=== PATIENT | male | born 1955 | race Caucasian/White ===

== ENCOUNTER 2017-11-22 11:27 | Emergency (ER) | END 2017-11-22 14:41 | disposition left against medical advice (07) ==

== ENCOUNTER 2018-03-03 02:55 | Emergency (ER) | END 2018-03-03 06:08 | disposition left against medical advice (07) ==

== ENCOUNTER 2018-11-27 18:29 | Inpatient (IN) | payer OTHER ==
[~2018-11-27] VITALS: Ht 188 cm; Wt 102.7 kg
[~2018-11-27 18:29] MED LIST: ACET500C5 PO; ALBU8.5H8 INH; FLUT1BLS INHALATION; PRED20TA PO
[2018-11-27] MEDS ORDERED: LEVALBUTEROL (NEB) 1.25 MG/0.5 ML AMP INH STA ×2 (18:41→22:12)
[2018-11-27] MEDS ORDERED: CEFEPIME 2GM/50 ML (PMX) 50 ML IVPB STA (18:41)
[2018-11-27] MEDS ORDERED: ACETAMINOPHEN 325 MG TAB PO STA (18:41)
[2018-11-27] MEDS ORDERED: SODIUM CHLORIDE 0.9% 1L BAG IV* STA (18:41)
[2018-11-27] MEDS ORDERED: DILTIAZEM-D5W 125MG/125ML DRIP 125 ML IV SCH (19:00)
[2018-11-27] MEDS ORDERED: DILTIAZEM 25 MG INJ IV ONE (19:00)
[2018-11-27] MEDS ORDERED: VANCOMYCIN 1 GM (PMX) 250 ML IVPB ONE (19:00)
--- NOTE | 2018-11-27 19:02 | ERD ---
ER Documentation Chief Complaint Chief Complaint Pt. ROSALIA GRAY with c/o SOB, "ran out of inhaler". Tachycardia HPI This is a 63-year-old male who is here because of difficulty breathing. The patient was brought in by EMS because he called him because he had a hard time breathing due to weak wheezing and he states he had no chest pain but he has had a cough for the past 2 days with productive yellow sputum. He says his is also sick at home with the same symptoms. He was given a breathing treatment in route and he says he feels much better. The patient says he has no history of cardiac arrhythmia. He does not know if he has had any fevers but he has had some chills at home. ROS All systems reviewed and are negative except as per history of present illness. Medications Home Meds Active Scripts Prednisone* (Prednisone*) 20 Mg Tab, 40 MG PO DAILY for 4 Days, TAB Prov:ROLANDO HAY DO 09/08/16 Acetaminophen* (Tylophen*) 500 Mg Capsule, 1 CAP PO Q6H PRN for PAIN AND OR ELEVATED TEMP, #20 CAP Prov:ROLANDO HAY DO 09/08/16 Albuterol Sulfate* (Proair HFA*) 8.5 Gm Hfa.aer.ad, 2 PUFF INH Q4, #1 INHALER Prov:ASHLEY CABRERA MD 10/26/15 Reported Medications Fluticasone/Vilanterol (Breo Ellipta 200-25 Mcg INH) 1 Each Blst.w.dev, 1 PUFF INHALATION DAILY, #1 INHALER 09/08/16 Allergies Allergies: Coded Allergies: Sulfa (Sulfonamide Antibiotics) (Verified Allergy, Intermediate, rashes, 09/08/16) aspirin (Verified Allergy, Intermediate, ANAPHYLATIC SHOCK, 09/08/16) ibuprofen (Verified Allergy, Intermediate, ANAPHYLACTIC SHOCK, 09/08/16) PMhx/Soc History of Surgery: Yes (Nasal Surgery X3) Anesthesia Reaction: No Hx Neurological Disorder: No Hx Respiratory Disorders: Yes (Asthma) Hx Cardiac Disorders: No Hx Psychiatric Problems: No Hx Miscellaneous Medical Probl: No Hx Alcohol Use: Yes (Occasional) Hx Substance Use: Yes (marijuana) Hx Tobacco Use: No Smoking Status: Never smoker FmHx Family History: No coronary disease Physical Exam Vitals Vital Signs Date Temp Pulse Resp B/P (MAP) Pulse Ox O2 O2 Flow FiO2 Time Delivery Rate 11/27/18 97 12 123/92 95 Nasal 4.0 20:13 (102) Cannula 11/27/18 103 22 93 21 19:20 11/27/18 100.0 19:08 11/27/18 100.0 134 26 160/95 99 18:36 (116) Physical Exam Const: Well-developed, well-nourished Head: Atraumatic, normocephalic Eyes: Normal Conjunctiva, PERRLA, EOMI, normal sclera, no nystagmus ENT: Normal External Ears, Nose and Mouth, moist mucus membranes. Neck: Full range of motion. No meningismus, no lymphadenopathy. Resp: Diffuse rhonchi bilaterally no increased work of breathing Cardio: Tachycardia irregular rate and rhythm S1 S2 present Abd: Soft, non tender x 4, non distended. Normal bowel sounds, no guarding or rebound, no pulsitile abdominal masses or bruits Skin: No petechiae or rashes, no ecchymosis , no maculopapular rash Back: No midline or flank tenderness Ext: No cyanosis, or edema, FROM x 4, normal inspection, neurovascularly intact x 4 Neur: Awake and alert, STR 5/5 x 4, sensation intact x 4, no focal findings, cerebellum intact Psych: Normal Mood and Affect Result Diagram: 11/27/18185011/27/181850 Results 24 hrs Laboratory Tests Test 11/27/18 18:51 White Blood Count 10.0 10^3/ul Red Blood Count 4.97 10^6/ul Hemoglobin 15.2 g/dl Hematocrit 45.4 % Mean Corpuscular Volume 91.3 fl Mean Corpuscular Hemoglobin 30.6 pg Mean Corpuscular Hemoglobin Concent 33.5 g/dl Red Cell Distribution Width 13.1 % Platelet Count 203 10^3/UL Mean Platelet Volume 10.3 fl Immature Granulocytes % 0.200 % Neutrophils % 63.9 % Lymphocytes % 24.9 % Monocytes % 9.0 % Eosinophils % 1.6 % Basophils % 0.4 % Nucleated Red Blood Cells % 0.0 /100WBC Immature Granulocytes # 0.020 10^3/ul Neutrophils # 6.4 10^3/ul Lymphocytes # 2.5 10^3/ul Monocytes # 0.9 10^3/ul Eosinophils # 0.2 10^3/ul Basophils # 0.0 10^3/ul Nucleated Red Blood Cells # 0.0 10^3/ul Prothrombin Time 12.8 Sec Prothrombin Time Ratio 1.0 INR International Normalized Ratio 0.95 Activated Partial Thromboplast Time 28.7 Sec Sodium Level 145 mmol/L Potassium Level 4.2 mmol/L Chloride Level 103 mmol/L Carbon Dioxide Level 33 mmol/L Anion Gap 9 Blood Urea Nitrogen 15 mg/dl Creatinine 1.38 mg/dl Est Glomerular Filtrat Rate mL/min 52 mL/min Glucose Level 128 mg/dl POC Venous Lactate 2.8 mmol/L Calcium Level 9.6 mg/dl Total Bilirubin 0.2 mg/dl Direct Bilirubin 0.00 mg/dl Indirect Bilirubin 0.2 mg/dl Aspartate Amino Transf (AST/SGOT) 36 IU/L Alanine Aminotransferase (ALT/SGPT) 29 IU/L Alkaline Phosphatase 81 IU/L Troponin I < 0.012 ng/ml Total Protein 8.4 g/dl Albumin 4.8 g/dl Globulin 3.60 g/dl Albumin/Globulin Ratio 1.33 Current Medications Medications Dose Sig/Tejal Start Time Status Last (Trade) Ordered Route PRN Stop Time Admin Dose Reason Admin Sodium 3,080 ml BOLUS OVER 2 11/27/18 DC 11/27/18 Chloride HOURS STAT 18:41 19:09 (NS) IV* 11/27/18 18:44 650 mg ONCE STAT 11/27/18 DC 11/27/18 Acetaminophen PO 18:41 19:08 (Tylenol 11/27/18 18:44 Tab) Cefepime HCl 50 ml @ ONCE STAT 11/27/18 DC 11/27/18 100 mls/hr IVPB 18:41 19:08 11/27/18 19:10 Vancomycin 250 ml @ ONCE ONCE 11/27/18 DC 11/27/18 HCl 125 mls/hr IVPB 19:00 19:56 11/27/18 20:59 1.25 mg ONCE STAT 11/27/18 DC 11/27/18 Levalbuterol INH 18:41 19:20 (Xopenex 11/27/18 18:44 Neb) Diltiazem 125 ml @ [id number] IV 11/27/18 11/27/18 HCl 10 mls/hr 19:00 19:42 Diltiazem 20 mg ONCE ONCE 11/27/18 DC 11/27/18 HCl IV 19:00 19:07 (Cardizem Iv) 11/27/18 19:01 Procedures/MDM EKG: Rate/Rhythm: Atrial fibrillation with rapid ventricular response QRS, ST, QT: NORMAL [place], QRS, QT] Impression: A. fib with RVR Patient is in A. fib with RVR heart rate in the 140s. Will give intravenous Cardizem bolus of 20 mg followed by Cardizem drip at 10 mg an hour. Code sepsis was called DIAGNOSTIC IMAGING REPORT Patient: ASHLEIGH EDWARDS : 1955 Age: 63 Sex: M MR #: [id number] DOS: 11/27/18 1841 Ordering MD: PAM WHITNEY DO Location: E/R Room/Bed: PROCEDURE: XR Chest. CLINICAL INDICATION: Infection TECHNIQUE: Single AP view of the chest was obtained COMPARISON: 09/08/2016 FINDINGS: The heart and mediastinum are within normal limits. The pulmonary vasculature are unremarkable. The aorta demonstrates atherosclerotic calcifications. There is no lung consolidation, pleural effusion or pneumothorax. Degenerative changes are seen within the thoracic spine and shoulders. There is no acute osseous abnormality. IMPRESSION: No acute disease. RPTAT: AA .Jeanine Marrufo MD, MD Date Time Electronically viewed and signed by .Jeanine Marrufo MD, MD on 11/27/2018 19:13 .J/ CC: PAM WHITNEY DO [phone] Admit MDM: Patient's infectious symptoms have not stabilized and the patient is at risk of rapid decompensation. The patient will be admitted for careful hydration, antibiotic therapy, and infectious source control. Severe Sepsis criteria: Infectious source: Pulmonary End organ damage indicated by: Elevated lactate Lactate > 2.0 mmol/L Hypotension (SBP < 90 or >40 mmHG drop or MAP < 65) Acute Resp Failure (sat < 92% w/o oxygen) [employer]st > 2.0 INR > 1.5 Plt < 100 Bili > 2 Sepsis Management: Time of recognition of severe sepsis: At time of the lactate Within 3 hours of recognition: Blood cultures x 2 before broad-spectrum antibiotics: []Yes 30 ml/kg NS bolus []Completed Initial lactate 2.8 Repeat lactate pending Septic Shock Assessment: Any lactic acid > 4.0 []No Persistent hypotension (SBP < 90 or 40 mmHg drop, MAP < 65) despite 30 mL/kg IV fluid bolus []No Persistent Hypotension Treatment: Comfort care []No Hypotension caused by: pt. baseline, med-induced, erroneous value, condition other than infection []No Refusal by patient/decision maker for: blood draw, IVF, Antibiotics, Pressors []No Accepting Care Team Current data and ongoing care discussed. Time: [] Admitting Physician: Panel Slitter Creaser Slotter Operator(s): Outstanding Data: []None Critical Care Time: 30 minutes Treatments/Evaluations: Close monitoring and treatment of unstable vital signs, cardiorespiratory, and neurologic status, while maintaining tight balance of flu id, respiratory, and cardiac interventions. This includes the administration of emergency fluid management while maintaining close respiratory support as well as the provision of immediate and broad-spectrum antibiotic therapy, while performing a simultaneous assessment for possible sources in order to direct targeted therapy. This time includes discussing the case with the patient and the patient's family. This time also includes the consideration for invasive and chemical support to prevent cardiopulmonary collapse. This time does not include all procedures stated elsewhere in this record. This time also includes reviewing old records, labs and radiological studies. This time includes exam ining and re-examining the patient. Additionally, this time also includes arranging care with admitting and consulting physicians. Departure Diagnosis: Primary Impression: Atrial fibrillation with RVR Additional Impression: Sepsis Sepsis type: sepsis due to unspecified organism Qualified Codes: A41.9 - Sepsis, unspecified organism Condition: PAM Shaver DO Nov 27, 2018 19:02
[2018-11-27] MEDS ORDERED: ACETAMINOPHEN 325 MG TAB PO PRN (22:00)
[2018-11-27] MEDS ORDERED: ONDANSETRON 4 MG INJ IV PRN (22:00)
[2018-11-27] MEDS ORDERED: ALBUTEROL/IPRATROPIUM (NEB) 3 ML AMP HHN STA (22:29)
[2018-11-27] MEDS ORDERED: METHYLPREDNISOLONE 125 MG INJ IV ONE (22:30)
[2018-11-27 22:52] VITALS: PULSE 87
[2018-11-27] MEDS ORDERED: PARO-37 PO (22:56)
[2018-11-27] MEDS ORDERED: LORA1TAB PO (22:56)
[2018-11-27] MEDS ORDERED: CETI10TA19 PO (22:56)
--- NOTE | 2018-11-27 22:58 | HP ---
Date/Time of Note Date/Time of Note DATE: 11/27/18 TIME: 22:41 Assessment/Plan VTE Prophylaxis Pharmacological prophylaxis: heparin Lines/Catheters IV Catheter Type (from Nrs): Peripheral IV Assessment/Plan Hospital Course This is a 63-year-old male with a history of obesity and persistent asthma who presents with URI induced asthma exacerbation Asthma exacerbation leading to hypoxic respiratory failure: -We will give bronchodilators [id number], systemic steroids and azithromycin - Lactic acid is elevated but i do no think this is sepsis. No evidence of shock so will hold off on further fluids URI: - Likely viral illness given sick contact with a cold - Influenza is negative Atrial fibrillation: - This is new diagnosis for him - Check TTE - Start on metoprolol 25 BID, rate currently adequate - CHADS2-VASc is 1, anticoagulation consideration at discharge Discharge plan pending Result Diagram: 11/27/18 1851 11/27/18 1851 Results 24hrs Laboratory Tests Test 11/27/18 18:51 11/27/18 21:46 11/27/18 22:13 White Blood Count 10.0 # Red Blood Count 4.97 Hemoglobin 15.2 Hematocrit 45.4 Mean Corpuscular Volume 91.3 Mean Corpuscular Hemoglobin 30.6 Mean Corpuscular Hemoglobin Concent 33.5 Red Cell Distribution Width 13.1 Platelet Count 203 Mean Platelet Volume 10.3 Immature Granulocytes % 0.200 Neutrophils % 63.9 Lymphocytes % 24.9 Monocytes % 9.0 Eosinophils % 1.6 Basophils % 0.4 Nucleated Red Blood Cells % 0.0 Immature Granulocytes # 0.020 Neutrophils # 6.4 Lymphocytes # 2.5 Monocytes # 0.9 Eosinophils # 0.2 Basophils # 0.0 Nucleated Red Blood Cells # 0.0 Prothrombin Time 12.8 Prothrombin Time Ratio 1.0 INR International Normalized Ratio 0.95 Activated Partial Thromboplast Time 28.7 Sodium Level 145 H Potassium Level 4.2 Chloride Level 103 Carbon Dioxide Level 33 H Anion Gap 9 Blood Urea Nitrogen 15 Creatinine 1.38 H Est Glomerular Filtrat Rate mL/min 52 L Glucose Level 128 POC Venous Lactate 2.8 *H 2.8 *H Calcium Level 9.6 Total Bilirubin 0.2 Direct Bilirubin 0.00 Indirect Bilirubin 0.2 Aspartate Amino Transf (AST/SGOT) 36 Alanine Aminotransferase (ALT/SGPT) 29 Alkaline Phosphatase 81 Troponin I < 0.012 Total Protein 8.4 H Albumin 4.8 Globulin 3.60 H Albumin/Globulin Ratio 1.33 Urine Color YELLOW Urine Clarity CLEAR Urine pH 5.0 Urine Specific [place] 1.020 Urine Ketones NEGATIVE Urine Nitrite NEGATIVE Urine Bilirubin NEGATIVE Urine Urobilinogen NEGATIVE Urine Leukocyte Esterase NEGATIVE Urine Hemoglobin NEGATIVE Urine Glucose NEGATIVE Urine Total Protein NEGATIVE HPI/ROS Admit Date/Time Admit Date/Time Nov 27, 2018 at 21:56 Hx of Present Illness 63 yo male with h/o persistent asthma presents with SOB Patients has had viral URI symptoms. The patient says he caught the same bug a few days ago with sore throat and cough. He says this set off his asthma over past days. Much more severe today. He presents now with severe respiratory distress, audibly wheezing. He was also found to have atrial fibrillation. He has never had this before. He does report some chest tightness currently. PMH/Family/Social Past Medical History Asthma Medications Current Medications Diltiazem HCl 125 ml @ 10 mls/hr [id number] IV Last administered on 11/27/18at 19:42; Admin Dose 10 MLS/HR; Start 11/27/18 at 19:00 Ondansetron HCl (Zofran Inj) 4 mg ER BRIDGE PRN IV NAUSEA/VOMITING; Start 11/27/18 at 22:00; Stop 11/28/18 at 21:59 Acetaminophen (Tylenol Tab) 650 mg ER BRIDGE PRN PO .MILD PAIN 1-3 OR TEMP; Start 11/27/18 at 22:00; Stop 11/28/18 at 21:59 Coded Allergies: Sulfa (Sulfonamide Antibiotics) (Verified Allergy, Intermediate, rashes, 09/08/16) aspirin (Verified Allergy, Intermediate, ANAPHYLATIC SHOCK, 09/08/16) ibuprofen (Verified Allergy, Intermediate, ANAPHYLACTIC SHOCK, 09/08/16) Past Surgical History Past Surgical Hx: no surgical history Family History Significant Family History: no pertinent family hx Social History Alcohol Use: none Smoking Status: Never smoker Drug Use: none Exam/Review of Systems Vital Signs Vitals Vital Signs Date Temp Pulse Resp B/P (MAP) Pulse Ox O2 O2 Flow FiO2 Time Delivery Rate 11/27/18 99.9 93 18 137/79 97 Nasal 4.0 22:22 (98) Cannula 11/27/18 21 19:20 Exam Exam AOx3 Tachypneic, labored breathing Tachy, irreg irreg Diffuse wheezing throughout lungs Abdomen obese Legs without edema Flat neck veins URBAN YA MD Nov 27, 2018 22:54
[2018-11-27 23:22] VITALS: Ht 188 cm; Wt 102.7 kg
[2018-11-27] MEDS ORDERED: HYDROCODONE/APAP (5/325) TAB PO PRN (23:30)
[2018-11-27] MEDS ORDERED: ALBUTEROL/IPRATROPIUM (NEB) 3 ML AMP HHN PRN (23:30)
[2018-11-27] MEDS ORDERED: LORAZEPAM 1 MG TAB PO PRN (23:30)
[2018-11-27] MEDS ORDERED: NACL 0.9% 3 ML SYG IV SCH (23:30)
[2018-11-27 23:31] VITALS: BP 118/68; PULSE 92; RESP 20
[2018-11-27] MEDS: METOPROLOL 25 MG TAB PO SCH (23:56)
[2018-11-28] VITALS (8 sets, daily range): BP systolic 116–140; BP diastolic 68–87; PULSE 67–98; RESP 18–20
[2018-11-28] MEDS: LEVALBUTEROL (NEB) 0.31 MG/3 ML AMP HHN SCH ×5 (01:34→16:23)
[2018-11-28] MEDS: METOPROLOL 25 MG TAB PO SCH (08:42)
[2018-11-28] MEDS ORDERED: FLUTICASONE/VILANTEROL 200-25 INH DEVICE INH SCH (09:00)
[2018-11-28] MEDS ORDERED: PAROXETINE 20 MG TAB PO SCH (09:00)
[2018-11-28] MEDS ORDERED: predniSONE 50 MG TAB PO SCH (09:00)
[2018-11-28] MEDS ORDERED: AZITHROMYCIN 250 MG TAB PO SCH (09:00)
--- NOTE | 2018-11-28 15:10 | PN ---
Date/Time of Note Date/Time of Note Assessment/Plan VTE Prophylaxis Risk score (from Nsg)>0 risk: 3 Assessment/Plan Hospital Course Result Diagram: 11/28/18 0539 11/28/18 0539 Results 24hrs Exam/Review of Systems Results Results 24hrs Medications Medication ANDERSON LYNNE NP Nov 28, 2018 15:10
--- NOTE | 2018-11-28 19:43 | DS ---
Date/Time of Note Date/Time of Note DATE: 11/28/18 TIME: 19:43 Discharge Summary Admission/Discharge Info Admit Date/Time Nov 27, 2018 at 21:56 Discharge Date/Time Nov 28, 2018 at 19:14 Discharge Diagnosis 1. Paroxysmal atrial fibrillation with rapid ventricular response. 2. Asthma exacerbation. 3. Upper respiratory infection. Patient Condition: Guarded Hx of Present Illness This is a 63-year-old male with past medical history of obesity and asthma who came to the emergency room with shortness of breath. The patient was noted to be in atrial fibrillation with rapid ventricular response. Therefore, the patient was admitted to inpatient setting. Hospital Course The patient was admitted to inpatient setting. The patient's atrial fibrillation converted to normal sinus rhythm. The patient was started on beta- rahul therapy. The patient had a [id number] score of 1. Cardiology consult was called for expert opinion regarding initiation of therapeutic anticoagulation. An echocardiogram was ordered. However, before the patient could be evaluated by the director of research the patient left the hospital AGAINST MEDICAL ADVICE. The patient had evidence of underlying asthma exacerbation. The patient was devan ntained on inhaled bronchodilators of both long-acting and short-acting. The patient was maintained on tapering dose of steroids. The patient was started on azithromycin since he had evidence of underlying upper respiratory infection. The patient's influenza A and B screen was negative. On 11/28/2018, the patient wanted to leave the hospital before he could be evaluated by cardiology. The patient was informed about the consequences of leaving the hospital AGAINST MEDICAL ADVICE including the possibility of . Nevertheless, the patient left the hospital AGAINST MEDICAL ADVICE. The patient was seen in collaboration with Dr. Oakes. Home Meds Active Scripts Acetaminophen* (Tylophen*) 500 Mg Capsule, 1 CAP PO Q6H PRN for PAIN AND OR ELEVATED TEMP, #20 CAP Prov:ROLANDO HAY DO 09/08/16 Albuterol Sulfate* (Proair HFA*) 8.5 Gm Hfa.aer.ad, 2 PUFF INH Q4, #1 INHALER Prov:ASHLEY CABRERA MD 10/26/15 Reported Medications Cetirizine Hcl* (Cetirizine Hcl*) 10 Mg Tablet, MG PO DAILY, #30 TAB 11/27/18 Lorazepam* (Lorazepam*) 1 Mg Tablet, 1 MG PO HS PRN for ANXIETY, #30 TAB 11/27/18 Paroxetine Hcl* (Paroxetine*) 20 Mg Tablet, 20 MG PO DAILY, TAB 11/27/18 Fluticasone/Vilanterol (Breo Ellipta 200-25 Mcg INH) 1 Each Blst.w.dev, 1 PUFF INHALATION DAILY, #1 INHALER 09/08/16 Discontinued Scripts Prednisone* (Prednisone*) 20 Mg Tab, 40 MG PO DAILY for 4 Days, TAB Prov:ROLANDO HAY DO 09/08/16 Follow-up Plan No follow-up plan could be confirmed since the patient left the hospital AGAINST MEDICAL ADVICE. Primary Care Provider Aroldo Valencia MD Time spent on discharge: < 30 minutes Pending Labs Laboratory Tests Test 11/27/18 21:46 11/27/18 22:13 11/28/18 05:39 Urine Color YELLOW (YELLOW) Urine Clarity CLEAR (CLEAR) Urine pH 5.0 (5.0-9.0) Urine Specific 1.020 (1.003-1.030) [place] Urine Ketones NEGATIVE mg/dL (NEGATIVE) Urine Nitrite NEGATIVE mg/dL (NEGATIVE) Urine Bilirubin NEGATIVE mg/dL (NEGATIVE) Urine Urobilinogen NEGATIVE mg/dL (NEGATIVE) Urine Leukocyte NEGATIVE [place]/ul Esterase Urine Hemoglobin NEGATIVE mg/dL (NEGATIVE) Urine Glucose NEGATIVE mg/dL (NEGATIVE) Urine Total NEGATIVE Protein mg/dl (NEGATIVE) POC Venous Lactate 2.8 mmol/L (0.5-2.0) White Blood Count 7.1 10^3/ul (4.8-10.8) Red Blood Count 4.55 10^6/ul (4.70-6.10 ) Hemoglobin 13.9 g/dl (14.0-18.0) Hematocrit 41.5 % (42.0-52.0) Mean Corpuscular 91.2 Volume fl (82.0-101.0) Mean Corpuscular 30.5 Hemoglobin pg (29.0-33.0) Mean Corpuscular 33.5 Hemoglobin Concent g/dl (32.0-37.0) Red Cell 13.0 % (11.5-14.5) Distribution Width Platelet Count 186 10^3/UL (140-415) Mean Platelet 10.6 fl (7.4-10.4) Volume Immature 0.400 Granulocytes % % (0.001-0.429) Neutrophils % 84.2 % (39.0-77.0) Lymphocytes % 13.6 % (15.0-51.0) Monocytes % 1.5 % (0.0-11.0) Eosinophils % 0.0 % (0.0-7.0) Basophils % 0.3 % (0.0-2.0) Nucleated Red Blood 0.0 Cells % /100WBC (0.0-0.0) Immature 0.030 Granulocytes # 10^3/ul (0.0-0.031 ) Neutrophils # 6.0 10^3/ul (1.6-7.5) Lymphocytes # 1.0 10^3/ul (0.8-2.9) Monocytes # 0.1 10^3/ul (0.3-0.9) Eosinophils # 0.0 10^3/ul (0.0-0.5) Basophils # 0.0 10^3/ul (0.0-0.1) Nucleated Red Blood 0.0 Cells # 10^3/ul (0.0-0.0) Sodium Level 142 mmol/L (135-144) Potassium Level 4.6 mmol/L (3.5-5.1) Chloride Level 102 mmol/L (97-110) Carbon Dioxide 25 mmol/L (21-31) Level Anion Gap 15 (5-13) Blood Urea 12 mg/dl (7-20) Nitrogen Creatinine 0.97 mg/dl (0.61-1.24) Est Glomerular > 60 mL/min (>60) Filtrat Rate mL/min Glucose Level 168 mg/dl (70-220) Hemoglobin A1c 5.3 % (0-5.9) Calcium Level 9.1 mg/dl (8.4-10.2) Total Bilirubin 0.4 mg/dl (0.2-1.3) Direct Bilirubin 0.00 mg/dl (0.00-0.20) Indirect Bilirubin 0.4 mg/dl (0-1.1) Aspartate Amino 30 IU/L (15-46) Transf (AST/SGOT) Alanine 30 IU/L (13-69) Aminotransferase (A LT/SGPT) Alkaline 59 IU/L (42-121) Phosphatase Troponin I < 0.012 ng/ml (0.000-0.120 ) Total Protein 7.2 g/dl (6.1-8.1) Albumin 4.2 g/dl (3.3-4.9) Globulin 3.00 g/dl (1.3-3.2) Albumin/Globulin 1.40 Ratio Microbiology Date/Time Source Procedure Growth Status 11/27/18 21:46 Catheter Urine Urine Culture - Preliminary NO GROWTH Resulted AFTER 24 HOURS ANDERSON LYNNE NP Nov 28, 2018 19:43
--- NOTE | 2018-11-29 07:42 | RADRPT ---
Echocardiogram Report Patient Name: ASHLEIGH EDWARDSPatient ID: [id number] : 1955 (63y )Study Date: 11/28/2018 9:46:10 AM Gender: MAccession #: [id number] Tech: Michael Yu [facility] Location: 523-[address] Ref.Physician: URBAN YA Height(Cm): BSA: Weight(Kg): Quality: AdequateAccount #: Procedures: Echocardiographic Report: Transthoracic echocardiogram with complete 2D, M-Mode, and doppler examination. Indications: Congestive Heart Failure. Measurements: 2D/M Mode Doppler Measurement Value Normal Range Measurement Value Normal Range LVIDd 2D 3.7 [ 4.2 - 5.8 ] cm AV Peak Tomy 1.6 [ 100.0 - 170.0 ] cm/sec LVIDs 2D 2.4 [ 2.5 - 4.0 ] cm AV Peak PG 10.0 [ 2.0 - 9.0 ] mmHg LVPWd 2D 1.5 [ 0.6 - 1.0 ] cm LVOT Peak Tomy 1.1 [ 70.0 - 110.0 ] cm/sec IVSd 2D 1.5 [ 0.6 - 1.0 ] cm LVOT Peak PG 5.0 [ 2.0 - 6.0 ] mmHg IVS/LVPW 2D 1.0 ratio MV E Peak Tomy 0.6 [ 60.0 - 130.0 ] cm/sec AoR Diam 2D 2.3 [ 2.6 - 3.4 ] cm MV A Peak Tomy 0.9 [ 100.0 - 120.0 ] cm/sec LA/Ao 2D 2 ratio MV E/A 0.7 [ 0.8 - 1.5 ] ratio LA Dimen 2D 3.6 [ 3.0 - 4.0 ] cm MV Decel Time 320 [ 104 - 258 ] msec Lat E` Tomy 0.1 [ 10.0 - 15.0 ] cm/sec Med E` Tomy 0.1 cm/sec MV E/A 0.7 [ 0.8 - 1.5 ] ratio RA Pressure 3.0 mmHg Findings: Left Ventricle: Normal left ventricular systolic function. Normal left ventricular cavity size. Moderate concentric left ventricular hypertrophy. Ejection fraction is visually estimated at 60 %. Tissue Doppler/Mitral Doppler indices are consistent with impaired relaxation (Stage I diastolic dysfunction). Right Ventricle: Normal right ventricular size. Normal right ventricular systolic function. Left Atrium: The left atrium is normal in size. Right Atrium: The right atrium is normal in size. Mitral Valve: Mild mitral leaflet calcification. Mild mitral annular calcification. Trace mitral regurgitation. Aortic Valve: No significant aortic stenosis or insufficiency. Aortic valve not well visualized. Aortic cusps appear mildly calcified. Tricuspid Valve: Normal appearance of the tricuspid valve. Unable to obtain RVSP due to minimal presence of tricuspid regurgitation. Pulmonic Valve: Pulmonic valve not well visualized. Pericardium: Normal pericardium with no significant pericardial effusion. Aorta: Normal aortic root. IVC: Dilated IVC with respiratory collapse consistent with elevated right atrial pressure. Conclusions: Normal left ventricular systolic function. Normal left ventricular cavity size. Moderate concentric left ventricular hypertrophy. Ejection fraction is visually estimated at 60 %. Tissue Doppler/Mitral Doppler indices are consistent with impaired relaxation (Stage I diastolic dysfunction). No significant aortic stenosis or insufficiency. Aortic valve not well visualized. Aortic cusps appear mildly calcified. Normal appearance of the tricuspid valve. Unable to obtain RVSP due to minimal presence of tricuspid regurgitation. Mild mitral leaflet calcification. Mild mitral annular calcification. Trace mitral regurgitation. Dilated IVC with respiratory collapse consistent with elevated right atrial pressure. Electronically Signed By: Shreyas Amezcua 2018-11-29 07:41:40 PST
== END 2018-11-28 19:14 | disposition left against medical advice (07) | DRG 309 ==
LOC: E/R 18:29 → TEL 21:56
PROVIDERS: ADMIT Internal Medicine; ATTEND Internal Medicine
PROC: 3E0F7GC Introduction of Other Therapeutic Substance into Respiratory Tract, Via Natural or Artificial Opening (ICD-10-PCS; principal; 2018-11-27)
DX: I48.2 Chronic atrial fibrillation (principal); J45.901 Unspecified asthma with (acute) exacerbation; J06.9 Acute upper respiratory infection, unspecified
CPT/HCPCS: 71045; 80053; 81003; 83036; 83605; 84484; 85025; 85610; 85730; 87040; 87086; 87400; 93005; 93306; 94640; 94664; 96374; 96375; J0692; J2930; J3370; J7030; J7512